=== PATIENT | female | born 1990 | race Hispanic/Latino ===

== ENCOUNTER 2020-01-03 09:22 | Emergency (ER) | payer MEDICAID ==
[2020-01-03 09:31] VITALS: BP 111/74
--- NOTE | 2020-01-03 11:25 | Emergency Department Report ---
Chief Complaint: Urogenital-Female Stated Complaint: STD CHECK Time Seen by Provider: 01/03/20 09:39 - HPI History of Present Illness: This is a 29-year-old -[place] female who presents to the emergency room with vaginal discharge for several days. No significant past medical history. Patient states she and partner both experiencing vaginal discharge. She is requesting STD check. Last menstrual. December 14, G6, P3 a 3 miscarriages. Denies pelvic pain, urinary frequency, urgency, dysuria, fever, or chills. - ROS Review of Systems: : Vaginal discharge All other systems reviewed and within normal limits. - Exam Vital Signs: Vital Signs 01/03/20 09:28 Temperature 98.2 F Pulse Rate 85 Respiratory 18 Rate Blood Pressure 111/74 O2 Sat by Pulse 98 Oximetry Physical Exam: - General Limitations: No Limitations General appearance: alert, in no apparent distress - Respiratory Respiratory exam: Present: normal lung sounds bilaterally. Absent: respiratory distress - Cardiovascular Cardiovascular Exam: Present: regular rate, normal rhythm. Absent: systolic murmur, diastolic murmur, rubs, gallop - GI/Abdominal GI/Abdominal exam: Present: soft, normal bowel sounds - Extremities Exam Extremities exam: Present: normal inspection - Back Exam Back exam: Present: normal inspection - Neurological Exam Neurological exam: Present: alert, oriented X3 - Psychiatric Psychiatric exam: Present: normal affect, normal mood - Skin Skin exam: Present: warm, dry, intact, normal color. Absent: rash MSE screening note: Focused history and physical exam performed. Due to findings the following was ordered: ED Medical Decision Making - Medical Decision Making This is a 29-year-old female who presents with vaginal discharge for 3 days. Vitals are stable and in no acute distress. No abdominal tenderness on exam. Labs deferred. Patient given handout with referrals to health department and PCP for full STD screening. Discharged home in stable condition. Discussed prevention options. F/U with PCP or Health Department. ED Disposition for MSE Disposition: MED SCREENING EXAM-LEFT Is pt being admited?: No Condition: Stable Instructions: Safe Sex (ED), Sexually Transmitted Diseases (ED) Referrals: BEBO CARBAJAL MD [Staff Physician] - 3-5 Days [facility] [Provider Group] - 3-5 Days [facility] [Outside] - 3-5 Days Time of Disposition: :28
== END 2020-01-03 11:59 | disposition left against medical advice (07) ==
LOC: ED 09:22
DX: N89.8 Other specified noninflammatory disorders of vagina (principal)
CPT/HCPCS: 99281

== ENCOUNTER 2020-10-07 18:53 | Emergency (ER) | payer MEDICAID ==
[2020-10-07 20:05] VITALS: BP 127/71
[2020-10-07 20:35] LABS: Basophils # (Auto) 0.1 K/mm3 (0.0-0.1); Eosinophils # (Auto) 0.2 K/mm3 (0.0-0.4); Eosinophils % (Auto) 1.7 % (0.0-4.3); Hematocrit 40.6 % (30.3-42.9); Hemoglobin 13.5 gm/dl (10.1-14.3); Lymphocytes # (Auto) 3.7 K/mm3 (1.2-5.4); Lymphocytes % (Auto) 31.5 % (13.4-35.0); Mean Corpuscular HGB Conc 33 % (30-34); Mean Corpuscular Volume 86 fl (79-97); Monocytes # (Auto) 0.8 K/mm3 (0.0-0.8); Platelet Count 304 K/mm3 (140-440); Red Blood Count 4.72 M/mm3 (3.65-5.03); Red Cell Distribution Width 13.4 % (13.2-15.2)
[2020-10-07 20:38] LABS: Bacteria,Urine 1+ /HPF (Negative); Bilirubin,Urine NEG (Negative); Blood,Urine NEG (Negative); Color,Urine Yellow (Yellow); Protein,Urine <15 mg/dL mg/dL (Negative); Urobilinogen,Urine < 2.0 mg/dL (<2.0)
[2020-10-07 20:47] LABS: Alanine Aminotransferase 22 units/L (7-56); Albumin 4.5 g/dL (3.9-5); Blood Urea Nitrogen 16 mg/dL (7-17); Calcium 9.6 mg/dL (8.4-10.2); Hemolysis Index 40
[2020-10-07 20:49] LABS: BUN/Creatinine Ratio 27
--- NOTE | 2020-10-08 01:28 | Emergency Department Report ---
ED General Adult HPI - General Chief complaint: Nausea/Vomiting/Diarrhea Stated complaint: NAUSEA/DIARRHEA/DIZZY Time Seen by Provider: 10/08/20 01:22 Source: patient Mode of arrival: Ambulatory Limitations: No Limitations - History of Present Illness Initial comments: 30-year-old female this emergency department complaining of having some nausea and vomiting after taking 2 doses of Effexor that the pharmacy had accidentally put Effexor and her gabapentin but gabapentin bowel and shortly after taking medication she reports nausea she reports no fever, chills, sweats, no chest pain, no numbness, no tingling, no headache, no blurred vision, no dizziness. She reports no change in bowel or bladder habits and she reports no mood changes. Radiation: non-radiation Consistency: constant Improves with: none Worsens with: none Associated Symptoms: nausea/vomiting, other (Symptoms have improved since the onset no vomiting during the last 4 hours here in the emergency department no vomiting has been witnessed and in the emergency emergency department she did have some dry heaving when she first arrived to the emergency department). denies: confusion, cough, diaphoresis, loss of appetite, malaise, syncope, weakness - Related Data Previous Rx's Medication Instructions Recorded Last Taken Type Clindamycin [Clindamycin CAP] 300 mg PO Q8H #21 cap 02/24/20 Unknown Rx Ondansetron [Zofran Odt] 4 mg PO Q8HR #20 tab.rapdis 10/08/20 Unknown Rx Allergies Allergy/AdvReac Type Severity Reaction Status Date / Time No Known Allergies Allergy Unverified 01/03/20 09:29 ED Review of Systems ROS: Stated complaint: NAUSEA/DIARRHEA/DIZZY Other details as noted in HPI Comment: All other systems reviewed and negative ED Past Medical Hx - Past Medical History Hx Psychiatric Treatment: Yes (ADD, ADHD, Depression, bipolar,) - Surgical History Past Surgical History?: Yes Hx Cholecystectomy: Yes Additional Surgical History: C section. Carpal tunnel - Social History Smoking Status: Never Smoker Substance Use Type: None - Medications Home Medications: Home Medications Medication Instructions Recorded Confirmed Last Taken Type Clindamycin [Clindamycin CAP] 300 mg PO Q8H #21 cap 02/24/20 Unknown Rx Ondansetron [Zofran Odt] 4 mg PO Q8HR #20 tab.rapdis 01/22/21 Unknown Rx ED Physical Exam - General Limitations: No Limitations General appearance: alert, in no apparent distress - Head Head exam: Present: atraumatic, normocephalic - Eye Eye exam: Present: normal appearance, PERRL, EOMI Pupils: Present: normal accommodation - ENT ENT exam: Present: normal exam, normal orophraynx, mucous membranes moist, TM's normal bilaterally - Neck Neck exam: Present: normal inspection, full ROM - Respiratory Respiratory exam: Present: normal lung sounds bilaterally. Absent: respiratory distress, wheezes, rales, accessory muscle use, decreased breath sounds - Cardiovascular Cardiovascular Exam: Present: regular rate, normal rhythm. Absent: systolic murmur, diastolic murmur, rubs, gallop - GI/Abdominal GI/Abdominal exam: Present: soft, normal bowel sounds. Absent: tenderness, guarding, rebound, hyperactive bowel sounds, hypoactive bowel sounds, organomegaly, bruit - Extremities Exam Extremities exam: Present: normal inspection, normal capillary refill - Back Exam Back exam: Present: normal inspection. Absent: CVA tenderness (R), CVA tenderness (L) - Neurological Exam Neurological exam: Present: alert, oriented X3, CN II-XII intact - Psychiatric Psychiatric exam: Present: normal affect, normal mood - Skin Skin exam: Present: warm, dry, intact, normal color. Absent: rash ED Course Vital Signs 10/07/20 19:45 Temperature 98.0 F Pulse Rate 77 Respiratory 16 Rate Blood Pressure 127/71 O2 Sat by Pulse 99 Oximetry ED Medical Decision Making - Lab Data Result diagrams: 10/07/20 20:12 10/07/20 20:12 Critical care attestation.: If time is entered above; I have spent that time in minutes in the direct care of this critically ill patient, excluding procedure time. ED Disposition Clinical Impression: Nausea & vomiting, Medication reaction Disposition: DC-01 TO HOME OR SELFCARE Is pt being admited?: No Does the pt Need Aspirin: No Condition: Stable Instructions: Nausea, Adult, Nausea and Vomiting, Adult Additional Instructions: Be sure to let the pharmacy of the other medication area also let her primary care doctor of the medication error they can adjust your restart Prescriptions: Ondansetron [Zofran Odt] 4 mg PO Q8HR #20 tab.rapdis Referrals: PRIMARY CARE, [Primary Care Provider] - 3-5 Days [facility] [Provider Group] - 3-5 Days
== END 2020-10-08 01:31 | disposition home or self-care (01) ==
LOC: ED 18:53
DX: R11.2 Nausea with vomiting, unspecified (principal); T43.215A Adverse effect of selective serotonin and norepinephrine reuptake inhibitors, initial encounter; F31.9 Bipolar disorder, unspecified; Z90.49 Acquired absence of other specified parts of digestive tract; Z79.2 Long term (current) use of antibiotics; Z79.899 Other long term (current) drug therapy; Y92.89 Other specified places as the place of occurrence of the external cause
CPT/HCPCS: 36415; 80053; 81001; 84703; 85025

== ENCOUNTER 2021-01-16 21:16 | Emergency (ER) | payer MEDICAID ==
[2021-01-16 21:54] LABS: Bilirubin,Urine NEG (Negative); Blood,Urine NEG (Negative); Color,Urine Straw (Yellow); Protein,Urine <15 mg/dL mg/dL (Negative); RBC,Urine < 1.0 /HPF (0.0-6.0); Urobilinogen,Urine < 2.0 mg/dL (<2.0); WBC,Urine < 1.0 /HPF (0.0-6.0)
[2021-01-16 22:03] LABS: HCG Qualitative,Urine Negative (Negative)
--- NOTE | 2021-01-17 00:18 | Emergency Department Report ---
HPI - General Chief Complaint: Chest Pain Time Seen by Provider: 01/17/21 00:07 - [facility] HPI: Room 7 The patient is a 30-year-old female present with a chief complaint of chest pain and dysuria. The patient states for the past 2 days she has had intermittent sharp substernal chest pain. Patient admits to an occasional cough that is nonproductive. Patient admits to shortness of breath and nausea with her pain. Patient states she feels as though she is dehydrated. Patient states for the past 2 to 3 days she has had dysuria. Patient denies hematuria or vaginal discharge. ED Past Medical Hx - Past Medical History Previous Medical History?: Yes Hx Psychiatric Treatment: Yes (ADD, ADHD, Depression, bipolar,) - Surgical History Past Surgical History?: Yes Hx Cholecystectomy: Yes Additional Surgical History: C section. Carpal tunnel - Family History Family history: no significant - Social History Smoking Status: Current Every Day Smoker (1/2 pack/day) Substance Use Type: None (Denies illicit drug use) - Medications Home Medications: Home Medications Medication Instructions Recorded Confirmed Last Taken Type Clindamycin [Clindamycin CAP] 300 mg PO Q8H #21 cap 02/24/20 Unknown Rx Ondansetron [Zofran Odt] 4 mg PO Q8HR #20 tab.rapdis 10/08/20 Unknown Rx ED Review of Systems ROS: Stated complaint: CHEST PAIN/SOB/NAUSEA Other details as noted in HPI Constitutional: denies: fever Eyes: denies: eye pain ENT: denies: throat pain Respiratory: cough, shortness of breath Cardiovascular: chest pain Endocrine: no symptoms reported Gastrointestinal: nausea, vomiting Genitourinary: dysuria. denies: hematuria, discharge Musculoskeletal: denies: back pain Neurological: denies: headache Physical Exam - Physical Exam Physical Exam: GENERAL: The patient is well-developed well-nourished female lying on stretcher not appearing to be in acute distress. [] HEENT: Normocephalic. Atraumatic. Extraocular motions are intact. Patient has moist mucous membranes. NECK: Supple. Trachea midline CHEST/LUNGS: Clear to auscultation. There is no respiratory distress noted. HEART/CARDIOVASCULAR: Regular. There is no tachycardia. There is no gallop rub or murmur. ABDOMEN: Abdomen is soft, with trace discomfort in the epigastric and left upper quadrant. No rebound or guarding. Patient has normal bowel sounds. There is no abdominal distention. SKIN: There is no rash. There is no edema. There is no diaphoresis. NEURO: The patient is awake, alert, and oriented. The patient is cooperative. The patient has no focal neurologic deficits. The patient has normal speech MUSCULOSKELETAL: There is no evidence of acute injury. PELVIC: No discharge visualized. No cervical lesions appreciated. ED Medical Decision Making - Lab Data Result diagrams: 01/17/21 00:18 01/17/21 00:18 Laboratory Tests 01/16/21 01/17/21 01/17/21 Unknown 00:18 00:18 WBC 10.3 RBC 4.36 Hgb 12.4 Hct 37.6 MCV 86 MCH 28 MCHC 33 RDW 14.3 Plt Count 331 Lymph % (Auto) 39.7 H [place] % (Auto) 6.0 Eos % (Auto) 2.6 Baso % (Auto) 0.4 Lymph # (Auto) 4.1 Bradford # (Auto) 0.6 Eos # (Auto) 0.3 Baso # (Auto) 0.0 Seg Neutrophils % 51.3 Seg Neutrophils # 5.3 D-Dimer < 135.00 Sodium Potassium Chloride Carbon Dioxide Anion Gap BUN Creatinine Estimated GFR BUN/Creatinine Ratio Glucose Calcium Total Creatine Kinase CK-MB (CK-2) CK-MB (CK-2) Rel Index Troponin T HCG, Qual Urine Color Straw Urine Turbidity Clear Urine pH 7.0 Ur Specific [place] 1.010 Urine Protein <15 mg/dl Urine Glucose (UA) Neg Urine Ketones Neg Urine Blood Neg Urine Nitrite Neg Urine Bilirubin Neg Urine Urobilinogen < 2.0 Ur Leukocyte Esterase Neg Urine WBC (Auto) < 1.0 Urine RBC (Auto) < 1.0 U Epithel Cells (Auto) 3.0 Urine HCG, Qual Negative 01/17/21 01/17/21 00:18 00:18 WBC RBC Hgb Hct MCV MCH MCHC RDW Plt Count Lymph % (Auto) [place] % (Auto) Eos % (Auto) Baso % (Auto) Lymph # (Auto) Bradford # (Auto) Eos # (Auto) Baso # (Auto) Seg Neutrophils % Seg Neutrophils # D-Dimer Sodium 138 Potassium 4.1 Chloride 104.7 Carbon Dioxide 23 Anion Gap 14 BUN 13 Creatinine 0.6 Estimated GFR > 60 BUN/Creatinine Ratio 22 Glucose 87 Calcium 8.7 Total Creatine Kinase 120 CK-MB (CK-2) < 1.0 CK-MB (CK-2) Rel Index 0.8 Troponin T < 0.010 HCG, Qual Negative Urine Color Urine Turbidity Urine pH Ur Specific [place] Urine Protein Urine Glucose (UA) Urine Ketones Urine Blood Urine Nitrite Urine Bilirubin Urine Urobilinogen Ur Leukocyte Esterase Urine WBC (Auto) Urine RBC (Auto) U Epithel Cells (Auto) Urine HCG, Qual Wet prep-greater than 20% clue cells, no trichomonas, no yeast - EKG Data -: EKG Interpreted by Me EKG shows normal: sinus rhythm Rate: normal - EKG Data When compared to previous EKG there are: previous EKG unavailable Interpretation: other (No ischemic changes seen) - Differential Diagnosis ACS, PE, pleurisy, GERD, UTI, urethritis, bacterial vaginosis Critical care attestation.: If time is entered above; I have spent that time in minutes in the direct care of this critically ill patient, excluding procedure time. ED Disposition Clinical Impression: Bacterial vaginosis Disposition: 07 ELOPED Is pt being admited?: No Does the pt Need Aspirin: No Condition: Undetermined Instructions: Bacterial Vaginosis (ED) Referrals: PRIMARY CARE, [Primary Care Provider] - 3-5 Days Forms: STI Treatment and Prevention Time of Disposition: 03:59 (Patient eloped prior to chest x-ray)
[2021-01-17 00:39] LABS: Basophils % (Auto) 0.4 % (0.0-1.8); Eosinophils # (Auto) 0.3 K/mm3 (0.0-0.4); Eosinophils % (Auto) 2.6 % (0.0-4.3); Hemoglobin 12.4 gm/dl (10.1-14.3); Lymphocytes # (Auto) 4.1 K/mm3 (1.2-5.4); Lymphocytes % (Auto) 39.7 % (13.4-35.0); Monocytes # (Auto) 0.6 K/mm3 (0.0-0.8)
[2021-01-17 00:53] LABS: Hematocrit 37.6 % (30.3-42.9); Mean Corpuscular HGB Conc 33 % (30-34); Mean Corpuscular Volume 86 fl (79-97); Platelet Count 331 K/mm3 (140-440); Red Blood Count 4.36 M/mm3 (3.65-5.03); Red Cell Distribution Width 14.3 % (13.2-15.2)
[2021-01-17 01:04] LABS: Blood Urea Nitrogen 13 mg/dL (7-17); Calcium 8.7 mg/dL (8.4-10.2); Hemolysis Index 3
[2021-01-17 01:16] LABS: BUN/Creatinine Ratio 22; Creatine Kinase MB < 1.0 ng/mL (0.0-4.0)
[2021-01-17] MEDS ORDERED: AZITHROMYCIN 1 GM ORAL PWDR PACKET PO ONE (02:12)
[2021-01-17] MEDS ORDERED: LIDOCAINE-MPF (1%) 10 MG/1 ML VIAL 5 ML INFILTRATI ONE (02:12)
[2021-01-17 04:18] VITALS: BP 122/76
--- NOTE | 2021-01-18 12:59 | Electrocardiograph Report ---
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
== END 2021-01-17 04:00 | disposition left against medical advice (07) ==
LOC: ED 21:16
DX: N76.0 Acute vaginitis (principal); B96.89 Other specified bacterial agents as the cause of diseases classified elsewhere; F17.200 Nicotine dependence, unspecified, uncomplicated; Z98.890 Other specified postprocedural states; F31.9 Bipolar disorder, unspecified; Z79.2 Long term (current) use of antibiotics; Z79.899 Other long term (current) drug therapy
CPT/HCPCS: 36415; 80048; 81001; 81025; 82550; 82553; 84484; 84703; 85025; 85379; 87210; 87591; 93005

== ENCOUNTER 2021-01-20 15:22 | Emergency (ER) | payer MEDICAID ==
[2021-01-20 15:37] VITALS: BP 157/91
[2021-01-20 16:20] LABS: Basophils # (Auto) 0.1 K/mm3 (0.0-0.1); Basophils % (Auto) 0.5 % (0.0-1.8); Eosinophils # (Auto) 0.3 K/mm3 (0.0-0.4); Eosinophils % (Auto) 2.3 % (0.0-4.3); Hematocrit 39.2 % (30.3-42.9); Hemoglobin 12.9 gm/dl (10.1-14.3); Lymphocytes # (Auto) 2.6 K/mm3 (1.2-5.4); Lymphocytes % (Auto) 22.2 % (13.4-35.0); Mean Corpuscular HGB Conc 33 % (30-34); Mean Corpuscular Volume 88 fl (79-97); Monocytes # (Auto) 0.7 K/mm3 (0.0-0.8); Monocytes % (Auto) 6.1 % (0.0-7.3); Platelet Count 320 K/mm3 (140-440); Red Blood Count 4.46 M/mm3 (3.65-5.03); Red Cell Distribution Width 14.5 % (13.2-15.2)
[2021-01-20 16:47] LABS: Alanine Aminotransferase 47 units/L (7-56); Blood Urea Nitrogen 11 mg/dL (7-17); Calcium 8.9 mg/dL (8.4-10.2); Hemolysis Index 10
[2021-01-20 16:52] LABS: BUN/Creatinine Ratio 18
[2021-01-20 17:12] LABS: Bilirubin,Urine NEG (Negative); Blood,Urine NEG (Negative); Color,Urine Straw (Yellow); Mucus,Urine FEW /HPF; Protein,Urine <15 mg/dL mg/dL (Negative); RBC,Urine < 1.0 /HPF (0.0-6.0); Urobilinogen,Urine < 2.0 mg/dL (<2.0)
[2021-01-20 17:23] LABS: HCG Qualitative,Urine Negative (Negative)
--- NOTE | 2021-01-20 17:53 | XRay Report ---
. ABDOMEN 3 VIEW(S) INDICATION / CLINICAL INFORMATION: n/v. COMPARISON: None available. FINDINGS: TUBES / LINES: None. BOWEL GAS PATTERN: No significant abnormality. FREE AIR / EXTRALUMINAL GAS: None seen. ADDITIONAL FINDINGS: No significant additional findings. CHEST: Visualized chest shows no significant abnormality. IMPRESSION: No significant abnormality. Signer Name: Jose Berger MD Signed: 01/20/2021 5:48 PM Workstation Name: [id number]
--- NOTE | 2021-01-20 18:15 | Emergency Department Report ---
ED N/V/D HPI - General Chief complaint: Nausea/Vomiting/Diarrhea Stated complaint: THROWING UP/UTI Time Seen by Provider: 01/20/21 16:25 Source: patient Mode of arrival: Ambulatory Limitations: No Limitations - History of Present Illness Initial comments: This is a 30-year-old female nontoxic, well nourished in appearance, no acute signs of distress presents to the ED with c/o of acute on chronic intermittent nausea and vomiting several months. Patient currently stated symptoms has resolved and last episode of vomiting was earlier this morning. Patient describes vomiting as food content. Patient denies any abdominal pain, chest pain, short of breath, fever, chills, headache, stiff neck, numbness or tingling. Patient denies any diarrhea or constipation. Denies any blood in stool. Patient denies any recent travels. Patient denies any drug allergies significant past medical history. MD complaint: nausea, vomiting -: month(s) Description of Vomiting: food contents Associated Abdominal Pain: No Radiation: none Pain Scale: 0 Consistency: intermittent, now resolved Improves with: none Worsens with: none Associated Symptoms: nausea/vomiting. denies: myalgias, chest pain, cough, diaphoresis, fever/chills, headaches, loss of appetite, malaise, rash, dysuria, shortness of breath, syncope, weakness - Related Data Previous Rx's Medication Instructions Recorded Last Taken Type Clindamycin [Clindamycin CAP] 300 mg PO Q8H #21 cap 02/24/20 Unknown Rx Ondansetron [Zofran Odt] 4 mg PO Q8HR #20 tab.rapdis 10/08/20 Unknown Rx Allergies Allergy/AdvReac Type Severity Reaction Status Date / Time No Known Allergies Allergy Verified 01/20/21 15:33 ED Review of Systems ROS: Stated complaint: THROWING UP/UTI Other details as noted in HPI Constitutional: denies: chills, fever Eyes: denies: eye pain, eye discharge, vision change ENT: denies: ear pain, throat pain Respiratory: denies: cough, shortness of breath, wheezing Cardiovascular: denies: chest pain, palpitations Endocrine: no symptoms reported Gastrointestinal: nausea, vomiting. denies: abdominal pain, diarrhea, constipation, hematemesis, melena, hematochezia Genitourinary: denies: urgency, dysuria, discharge Musculoskeletal: denies: back pain, joint swelling, arthralgia Skin: denies: rash, lesions Neurological: denies: headache, weakness, paresthesias Psychiatric: denies: anxiety, depression Hematological/Lymphatic: denies: easy bleeding, easy bruising ED Past Medical Hx - Past Medical History Hx Psychiatric Treatment: Yes (ADD, ADHD, Depression, bipolar,) - Surgical History Hx Cholecystectomy: Yes Additional Surgical History: C section. Carpal tunnel - Social History Smoking Status: Never Smoker Substance Use Type: None - Medications Home Medications: Home Medications Medication Instructions Recorded Confirmed Last Taken Type Clindamycin [Clindamycin CAP] 300 mg PO Q8H #21 cap 02/24/20 Unknown Rx Ondansetron [Zofran Odt] 4 mg PO Q8HR #20 tab.rapdis 10/08/20 Unknown Rx ED Physical Exam - General Limitations: No Limitations General appearance: alert, in no apparent distress - Head Head exam: Present: atraumatic, normocephalic - Eye Eye exam: Present: normal appearance - Neck Neck exam: Present: normal inspection, full ROM. Absent: lymphadenopathy - Respiratory Respiratory exam: Present: normal lung sounds bilaterally. Absent: respiratory distress, wheezes, rales, rhonchi, stridor, chest wall tenderness, accessory muscle use, decreased breath sounds, prolonged expiratory - Cardiovascular Cardiovascular Exam: Present: regular rate, normal rhythm, normal heart sounds. Absent: bradycardia, tachycardia, irregular rhythm, systolic murmur, diastolic murmur, rubs, gallop - GI/Abdominal GI/Abdominal exam: Present: soft, normal bowel sounds. Absent: distended, tenderness, guarding, rebound, rigid, diminished bowel sounds - Extremities Exam Extremities exam: Present: normal inspection, full ROM - Back Exam Back exam: Present: normal inspection, full ROM. Absent: tenderness, CVA tenderness (R), CVA tenderness (L), muscle spasm, paraspinal tenderness, vertebral tenderness, rash noted - Neurological Exam Neurological exam: Present: alert, oriented X3, normal gait - Psychiatric Psychiatric exam: Present: normal affect, normal mood - Skin Skin exam: Present: warm, dry, intact, normal color. Absent: rash ED Course Vital Signs 01/20/21 15:33 Temperature 98.2 F Pulse Rate 95 H Respiratory 18 Rate Blood Pressure 157/91 O2 Sat by Pulse 100 Oximetry - Reevaluation(s) Reevaluation #1: 01/20/21 18:14 Patient is speaking in full sentences and eating chips with soda in triage area with no signs of distress noted. ED Medical Decision Making - Lab Data Result diagrams: 01/20/21 15:54 01/20/21 15:54 Lab Results 01/20/21 01/20/21 01/20/21 Range/Units 15:54 15:54 15:54 WBC 11.5 H (4.5-11.0) K/mm3 RBC 4.46 (3.65-5.03) M/mm3 Hgb 12.9 (10.1-14.3) gm/dl Hct 39.2 (30.3-42.9) % MCV 88 (79-97) fl MCH 29 (28-32) pg MCHC 33 (30-34) % RDW 14.5 (13.2-15.2) % Plt Count 320 (140-440) K/mm3 Lymph % (Auto) 22.2 (13.4-35.0) % [place] % (Auto) 6.1 (0.0-7.3) % Eos % (Auto) 2.3 (0.0-4.3) % Baso % (Auto) 0.5 (0.0-1.8) % Lymph # (Auto) 2.6 (1.2-5.4) K/mm3 [place] # (Auto) 0.7 (0.0-0.8) K/mm3 Eos # (Auto) 0.3 (0.0-0.4) K/mm3 Baso # (Auto) 0.1 (0.0-0.1) K/mm3 Seg Neutrophils % 68.9 (40.0-70.0) % Seg Neutrophils # 8.0 H (1.8-7.7) K/mm3 Sodium 138 (137-145) mmol/L Potassium 4.5 (3.6-5.0) mmol/L Chloride 104.3 (98-107) mmol/L Carbon Dioxide 23 (22-30) mmol/L Anion Gap 15 mmol/L BUN 11 (7-17) mg/dL Creatinine 0.6 (0.6-1.2) mg/dL Estimated GFR > 60 ml/min BUN/Creatinine Ratio 18 % Glucose 95 (65-100) mg/dL Calcium 8.9 (8.4-10.2) mg/dL Total Bilirubin < 0.20 (0.1-1.2) mg/dL AST 27 (5-40) units/L ALT 47 (7-56) units/L Alkaline Phosphatase 97 (35-129) units/L Total Protein 7.5 (6.3-8.2) g/dL Albumin 4.0 (3.9-5) g/dL Albumin/Globulin Ratio 1.1 % Lipase (13-60) units/L HCG, Qual Negative (Negative) Urine Color (Yellow) Urine Turbidity (Clear) Urine pH (5.0-7.0) Ur Specific [place] (1.003-1.030) Urine Protein (Negative) mg/dL Urine Glucose (UA) (Negative) mg/dL Urine Ketones (Negative) mg/dL Urine Blood (Negative) Urine Nitrite (Negative) Urine Bilirubin (Negative) Urine Urobilinogen (<2.0) mg/dL Ur Leukocyte Esterase (Negative) Urine WBC (Auto) (0.0-6.0) /HPF Urine RBC (Auto) (0.0-6.0) /HPF U Epithel Cells (Auto) (0-13.0) /HPF Urine Mucus /HPF Urine HCG, Qual (Negative) 01/20/21 01/20/21 Range/Units 15:54 16:36 WBC (4.5-11.0) K/mm3 RBC (3.65-5.03) M/mm3 Hgb (10.1-14.3) gm/dl Hct (30.3-42.9) % MCV (79-97) fl MCH (28-32) pg MCHC (30-34) % RDW (13.2-15.2) % Plt Count (140-440) K/mm3 Lymph % (Auto) (13.4-35.0) % [place] % (Auto) (0.0-7.3) % Eos % (Auto) (0.0-4.3) % Baso % (Auto) (0.0-1.8) % Lymph # (Auto) (1.2-5.4) K/mm3 [place] # (Auto) (0.0-0.8) K/mm3 Eos # (Auto) (0.0-0.4) K/mm3 Baso # (Auto) (0.0-0.1) K/mm3 Seg Neutrophils % (40.0-70.0) % Seg Neutrophils # (1.8-7.7) K/mm3 Sodium (137-145) mmol/L Potassium (3.6-5.0) mmol/L Chloride (98-107) mmol/L Carbon Dioxide (22-30) mmol/L Anion Gap mmol/L BUN (7-17) mg/dL Creatinine (0.6-1.2) mg/dL Estimated GFR ml/min BUN/Creatinine Ratio % Glucose (65-100) mg/dL Calcium (8.4-10.2) mg/dL Total Bilirubin (0.1-1.2) mg/dL AST (5-40) units/L ALT (7-56) units/L Alkaline Phosphatase (35-129) units/L Total Protein (6.3-8.2) g/dL Albumin (3.9-5) g/dL Albumin/Globulin Ratio % Lipase 14 (13-60) units/L HCG, Qual (Negative) Urine Color Straw (Yellow) Urine Turbidity Clear (Clear) Urine pH 7.0 (5.0-7.0) Ur Specific [place] 1.012 (1.003-1.030) Urine Protein <15 mg/dl (Negative) mg/dL Urine Glucose (UA) Neg (Negative) mg/dL Urine Ketones Neg (Negative) mg/dL Urine Blood Neg (Negative) Urine Nitrite Neg (Negative) Urine Bilirubin Neg (Negative) Urine Urobilinogen < 2.0 (<2.0) mg/dL Ur Leukocyte Esterase Neg (Negative) Urine WBC (Auto) 1.0 (0.0-6.0) /HPF Urine RBC (Auto) < 1.0 (0.0-6.0) /HPF U Epithel Cells (Auto) 2.0 (0-13.0) /HPF Urine Mucus Few /HPF Urine HCG, Qual Negative (Negative) - Radiology Data [facility] [address] [place] [address] XRay Report Signed Patient: MYRNA FOY MR#: [id number] : 1990 Acct:[id number] Age/Sex: 30 / F ADM Date: 01/20/21 Loc: ED Attending Dr: Ordering Physician: NICK HENRY NP Date of Service: 01/20/21 Procedure(s): XR abd series w cxr 1V Accession Number(s): [id number] cc: NICK HENRY NP Fluoro Time In Minutes: . ABDOMEN 3 VIEW(S) INDICATION / CLINICAL INFORMATION: n/v. COMPARISON: None available. FINDINGS: TUBES / LINES: None. BOWEL GAS PATTERN: No significant abnormality. FREE AIR / EXTRALUMINAL GAS: None seen. ADDITIONAL FINDINGS: No significant additional findings. CHEST: Visualized chest shows no significant abnormality. IMPRESSION: No significant abnormality. Signer Name: Steve Berger MD Signed: 01/20/2021 5:48 PM Workstation Name: [id number] Transcribed By: SS Dictated By: STEVE BERGER Electronically Authenticated By: STEVE BERGER Signed Date/Time: 01/20/211747 DD/ 47 TD/TT: - Medical Decision Making This is a 30-year-old female that presents with nausea and vomiting. Patient is stable and was examined by me. There is no abdominal tenderness. Negative signs of symptoms of appendicitis, cholecystitis or acute abdomen. Labs obtained. UA obtained. Xr abdomen/chest xray obtained and dictated by the radiologist. Patient is notified of the report with no questions noted by the patient. Vital signs are stable prior to discharge. Patient was educating and drinking and patient tolerated well with no nausea vomiting. Patient was also instructed to Follow-up with a primary care doctor in 3-5 days or if symptoms worsen and continue return to emergency room as soon as possible. At time of discharge, the patient does not seem toxic or ill in appearance. No acute signs of distress noted. Patient agrees to discharge treatment plan of care. No further questions noted by the patient. Critical care attestation.: If time is entered above; I have spent that time in minutes in the direct care of this critically ill patient, excluding procedure time. 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 Referrals: FRANCO SIN MD [Primary Care Provider] - 3-5 Days PRIMARY CARE, [Referring] - 3-5 Days BEBO CARBAJAL MD [Staff Physician] - 3-5 Days [facility] [Provider Group] - 3-5 Days Time of Disposition: 18:17
== END 2021-01-20 18:59 | disposition home or self-care (01) ==
LOC: ED 15:22
DX: R11.2 Nausea with vomiting, unspecified (principal); F31.9 Bipolar disorder, unspecified; Z90.49 Acquired absence of other specified parts of digestive tract; Z98.890 Other specified postprocedural states; Z79.2 Long term (current) use of antibiotics; Z79.899 Other long term (current) drug therapy
CPT/HCPCS: 36415; 74022; 80053; 81001; 81025; 83690; 84703; 85025